=== PATIENT | male | born 1985 | race Caucasian/White ===

== ENCOUNTER 2018-02-13 00:12 | Emergency (ER) | payer MEDICAID ==
[~2018-02-13] VITALS: Ht 160 cm; Wt 75.0 kg
[~2018-02-13 00:12] MED LIST: HYDR-3498 PO; IBUP-1542 PO; OMEP20CA16 PO; ONDA4TAB35 PO
[2018-02-13 00:17] VITALS: Ht 160 cm; Wt 75.0 kg
[2018-02-13] MEDS ORDERED: ACETAMINOPHEN 325 MG TAB PO ONE (05:00)
--- NOTE | 2018-02-13 06:04 | ERD ---
ER Documentation Chief Complaint Chief Complaint c/o epigastric pain +SOB since 12 noon yesterday. +burning. HPI 32-year-old male, previously healthy, presents to the emergency department, complaining of 1 day with burning epigastric pain, associated with cough and shortness of breath. The patient denies fevers, chills, no palpitations, no dizziness. No treatment attempted at this time. ROS All systems reviewed and are negative except as per history of present illness. Medications Home Meds Active Scripts Albuterol Sulfate* (Proair HFA*) 8.5 Gm Hfa.aer.ad, 2 PUFF INH Q4H PRN for WHEEZING AND SOB, #1 INHALER Prov:NOA RAJPUT MD 02/13/18 Ranitidine Hcl* (Zantac*) 150 Mg Tablet, 150 MG PO BID PRN for EPIGASTRIC PAIN, #10 TAB Prov:NOA RAJPUT MD 02/13/18 Omeprazole* (Omeprazole*) 20 Mg Capsule.dr, 20 MG PO BID, #30 TAB Prov:ALICE DOUGLAS PA-C 11/06/15 Ondansetron Hcl* (Zofran* ODT) 4 mg -ODT Tab.disper, 4 MG PO Q8 PRN for NAUSEA AND/OR VOMITING, #30 TAB Prov:DELLA ZENG NP 01/18/15 Hydrocodone Bit-Acetaminophen* (Dolton*) 5-325 Mg Tab, 1 TAB PO Q6 PRN for PAIN, #10 TAB Prov:DELLA ZENG NP 01/18/15 Hydrocodone Bit-Acetaminophen* ([place]ol[place]*) 5-325 Mg Tab, 1 TAB PO Q6 PRN for PAIN, #14 TAB Prov:MIRI AVINA PA-C 09/01/14 Ibuprofen* (Motrin*) 600 Mg Tab, 600 MG PO Q6H PRN for PAIN AND OR ELEVATED TEMP, #30 Prov:MIRI AVINA PA-C 09/01/14 Reported Medications [none] Unknown Strength No Conflict Check 01/18/15 Allergies Allergies: Coded Allergies: No Known Drug Allergies (Verified Adverse Reaction, Unknown, 02/22/13) PMhx/Soc History of Surgery: No Anesthesia Reaction: No Hx Neurological Disorder: No Hx Respiratory Disorders: No Hx Cardiac Disorders: No Hx Psychiatric Problems: No Hx Miscellaneous Medical Probl: Yes (diverticulitis) Hx Alcohol Use: Yes (SOCIALLY) Hx Substance Use: No Hx Tobacco Use: No Smoking Status: Never smoker FmHx Family History: diabetes; No coronary disease Physical Exam Vitals Vital Signs Date Temp Pulse Resp B/P (MAP) Pulse Ox O2 O2 Flow FiO2 Time Delivery Rate 02/13/18 98.4 72 20 123/74 98 06:55 (90) 02/13/18 55 18 98 21 06:18 02/13/18 98.5 67 20 149/89 99 00:17 (109) Physical Exam Const: No acute distress Head: Atraumatic Eyes: Normal Conjunctiva ENT: Normal External Ears, Nose and Mouth. Neck: Full range of motion. No meningismus. Resp: Clear to auscultation bilaterally Cardio: Regular rate and rhythm, no murmurs Abd: Mild tenderness in epigastric area, non distended. Normal bowel sounds Skin: No petechiae or rashes Back: No midline or flank tenderness Ext: No cyanosis, or edema Neur: Awake and alert Psych: Normal Mood and Affect Result Diagram: 02/13/1815 02/13/18 0515 Results 24 hrs Laboratory Tests Test 02/13/18 05:15 White Blood Count 10.9 10^3/ul Red Blood Count 5.52 10^6/ul Hemoglobin 16.6 g/dl Hematocrit 46.9 % Mean Corpuscular Volume 85.0 fl Mean Corpuscular Hemoglobin 30.1 pg Mean Corpuscular Hemoglobin Concent 35.4 g/dl Red Cell Distribution Width 12.0 % Platelet Count 240 10^3/UL Mean Platelet Volume 10.3 fl Immature Granulocytes % 0.300 % Neutrophils % 77.1 % Lymphocytes % 13.7 % Monocytes % 6.1 % Eosinophils % 2.2 % Basophils % 0.6 % Nucleated Red Blood Cells % 0.0 /100WBC Immature Granulocytes # 0.030 10^3/ul Neutrophils # 8.4 10^3/ul Lymphocytes # 1.5 10^3/ul Monocytes # 0.7 10^3/ul Eosinophils # 0.2 10^3/ul Basophils # 0.1 10^3/ul Nucleated Red Blood Cells # 0.0 10^3/ul Sodium Level 141 mmol/L Potassium Level 3.9 mmol/L Chloride Level 108 mmol/L Carbon Dioxide Level 22 mmol/L Anion Gap 11 Blood Urea Nitrogen 18 mg/dl Creatinine 0.70 mg/dl Est Glomerular Filtrat Rate mL/min > 60 mL/min Glucose Level 105 mg/dl Calcium Level 9.5 mg/dl Troponin I < 0.012 ng/ml Current Medications Medications Dose Sig/Shahram Start Time Status Last (Trade) Ordered Route PRN Stop Time Admin Dose Reason Admin 650 mg ONCE ONCE 02/13/18 DC 02/13/18 Acetaminophen PO 05:00 02/13/18 04:44 (Tylenol 05:01 Tab) Albuterol 5 mg ONCE RESP 02/13/18 DC 02/13/18 (Proventil THERAPY 06:06 02/13/18 06:17 0.083% (Neb)) STAT HHN 06:07 40 ml ONCE ONCE 02/13/18 DC 02/13/18 Miscellaneous PO 06:30 02/13/18 06:47 Medication 06:31 (Gi Cocktail (2)) EKG read by me: Rate/Rhythm: Regular rate and rhythm at a rate of 69 Intervals: Normal No acute ST changes. No T wave inversion Impression: No evidence of acute ischemia or arrhythmia Procedures/MDM Vital signs stable. Differential diagnosis include but not limited to: Gastritis, gastroenteritis, cholelithiasis, cholecystitis, kidney stones, irritable bowel syndrome, inflammatory bowel syndrome, malabsorption syndrome, food intolerance, medication side effect, pancreatitis, diverticulitis, bowel o bstruction. Physical examination and clinical presentation consistent most likely with acute gastritis and upper respiratory infection. During the ED course the patient remained stable, no new complaints. Results and clinical impression discussed with the patient who agrees with management. The patient is stable to be treated outpatient and will be discharged home. some side effects of prescribed medications (headache, rash, nausea, vomiting, diarrhea, drowsiness, habituation, bleeding, hypertension, interactions with other medications) were reviewed. Follow up with the primary care provider in the next 48h is recommended. If symptoms persist, worsen or new symptoms develop, then patient should return to the ED immediately. Instructions explained and given directly by me to the patient with acknowledgment and demonstrated understanding. Disclaimer: Inadvertent spelling and grammatical errors are likely due to EHR/dictation software use and do not reflect on the overall quality of patient care. Also, please note that the electronic time recorded on this note does not necessarily reflect the actual time of the patient encounter. Departure Diagnosis: Primary Impression: Gastritis Additional Impression: Cough Condition: Stable Additional Instructions: Thank you very much for allowing us to participate in your care. Your health and safety is our top priority at [facility]. Call your primary care doctor TOMORROW for an appointment during the next 2-4 days and bring all the information and medications prescribed. Have prescriptions filled and follow precisely the directions on the label. If the symptoms get worse and your provider is unavailable, return to the Emergency Department immediately. NOA RAJPUT MD Feb 13, 2018 06:04
[2018-02-13] MEDS: ALBUTEROL 0.083% (NEB) 2.5 MG/3 ML AMP HHN STA ×2 (06:15→06:17)
[2018-02-13] MEDS ORDERED: LIDOCAINE/MYLANTA 40 ML BTL PO ONE (06:30)
[2018-02-13] MEDS ORDERED: RANI150T35 PO (06:42)
[2018-02-13] MEDS ORDERED: ALBU8.5H8 INH (06:42)
[2018-02-13 06:55] VITALS: BP 123/74; PULSE 72; RESP 20
== END 2018-02-13 06:56 | disposition home or self-care (01) ==
LOC: FTE 00:12
DX: K29.70 Gastritis, unspecified, without bleeding (principal); R05 Cough
CPT/HCPCS: 36415; 71046; 80048; 84484; 85025; 93005; 94664; Z7502; Z7610